=== PATIENT | female | born 2005 | race Caucasian/White ===

== ENCOUNTER 2025-01-29 16:51 | Emergency (ER) | payer BC, SELFPAY ==
--- OUTSIDE RECORDS SUMMARY | 2024-11-12 07:59 | XMS_ITS | Continuity of Care Document ---
Author Organization [facility] Address [address] [place] [address] [address] [place] [address] Phone Care Team Providers Care Grounds Caretaker Name Role Phone Aditya PT,MPT,ATC, Jun Unavailable Unavai lable Procedures Procedure Date Therapeutic Activities Neuromuscular Re-Ed Therapeutic Exercise Therapeutic Activities Neuromuscular Re-Ed Therapeutic Exercise Therapeutic Activities Neuromuscular Re-Ed Therapeutic Exercise Therapeutic Activities Neuromuscular Re-Ed Therapeutic Exercise Therapeutic Activities Neuromuscular Re-Ed Therapeutic Exercise Therapeutic Activities Neuromuscular Re-Ed Therapeutic Exercise Therapeutic Activities Neuromuscular Re-Ed Therapeutic Exercise Therapeutic Activities Neuromuscular Re-Ed Therapeutic Exercise Therapeutic Activities Neuromuscular Re-Ed Therapeutic Exercise Therapeutic Activities Neuromuscular Re-Ed Therapeutic Exercise Therapeutic Activities Neuromuscular Re-Ed Therapeutic Exercise Therapeutic Activities Neuromuscular Re-Ed Therapeutic Exercise Therapeutic Activities Neuromuscular Re-Ed Therapeutic Exercise PT Evaluation Moderate Complexity Therapeutic Activities Neuromuscular Re-Ed Advance Directives Directive Yes / No Effective Date File Name No Information Encounters Encounter Description Practice Location Reason(s) For Visit Diagnoses Date Provider Providers Copied on Encounter [facility], [place], [place], [id number], tel:[phone] [place] No Information - 5 CARSON [place], [place]. [facility], [place], [place], [id number], tel:[phone] [place] No Information Aug- 5 [place] Ronnie. . Referring Provider: Michael Worrell [address], [place], [address]. tel:[phone] [facility] [address], [place], [place], [id number], tel:[phone] [place] No Information Aug-07 14- 5 [place] Ronnie. . Referring Provider: Michael Worrell [address], [place], [address]. tel:[phone] [facility], [place], [place], [id number], tel:[phone] [place] No Information Aug-06 16- 5 [place] Ronnie. . Referring Provider: Michael Worrell [address], [place], [address]. tel:[phone] [facility], [place], [place], [id number], tel:[phone] [place] No Information Aug- 4-202 5 [place] Ronnie. . Referring Provider: Michael Worrell [address], [place], [address]. tel:[phone] [facility], [place], [place], [id number], [place] tel:[phone] [place] No Information Mar-1 0-202 5 [place] Ronnie. . Referring Provider: Michael Worrell [address], [place], [address]. tel:[phone] [facility], [address], [place], [place], [id number], [place] tel:[phone] [place] No Information Mar-0 5-202 5 [place] Ronnie. . Referring Provider: Michael Worrell [address], [place], [address]. tel:[phone] [facility], [place], [place], [id number], [place] tel:[phone] [place] No Information Mar-0 3-202 5 [place] Ronnie. . Referring Provider: Michael Worrell [address], [place], [address]. tel:[phone] [facility] [address] [place] [address] [address], [place], [place], [id number], [place] tel:[phone] [place] No Information Feb-2 6-202 5 [place] Ronnie. . Referring Provider: Michael Worrell [address], [place], [address]. tel:[phone] [facility] [address], [place], [place], [id number], [place] tel:[phone] [place] No Information Feb-2 4-202 5 [place] Ronnie. . Referring Provider: Michael Worrell [address], [place], [address]. tel:[phone] [place] [address], [place], [place], [id number], [place] tel:[phone] [place] No Information 5 [place] Ronnie. . Referring Provider: Michael Worrell [address], [place], [address]. tel:[phone] [facility], [place], [place], [id number], [place] tel:[phone] [place] No Information 5 [place] Ronnie. . Referring Provider: Michael Worrell [address], [place], [address]. tel:[phone] [facility], [place], [place], [id number], [place] tel:[phone] [place] No Information 5 [place] Ronnie. . Referring Provider: Michael Worrell [address], [place], [address]. tel:[phone] [facility], [place], [place], [id number], [place] tel:[phone] [place] No Information 5 [place] Ronnie. . Referring Provider: Michael Worrell [address], [place], [address]. tel:[phone] [facility], [place], [place], [id number], [place] tel:[phone] [place] No Information 5 Aditya Berman [place], [place]. Referring Provider: Michael Worrell [address], [place], [address]. tel:[phone] Family History Family Member Type Diagnosis Age At Onset No Information Payers Payer name Insurance type Covered republican ID Gulshan barrera(s) [facility] [id number] Social History Type Description Quantity Date Captured Comments Sex Female Smoking Status No Information Chief Complaint And Reason For Visit No Information Reason For Referral Reason For Referral No Information History Of Present Illness Encounter Date Complaint History Of Prese nt Illness No Information Functional Status Date Functional Assessmen t No Information Instructions Date Instruction Additional Infor mation No Information Assessments Type Assessment Date No Information Patient Care Teams Name Effective Dates (start - stop) Status Members No Information
--- NOTE | ~2025-01-29 | CT_ITS ---
EXAMINATION: CT diagnostic chest w con DATE: 01/29/2025 19:56 INDICATION: BA. Chest pain TECHNIQUE: Computed tomography (CT) of the chest was performed with 100 cc Omnipaque 350 intravenous contrast. The dose-length product was 182.10 mGy-cm. Automated exposure control and iterative reconstruction technique were employed. COMPARISON: None FINDINGS: Heart size normal. No thoracic lymphadenopathy. No significant pleural or pericardial effusion. Upper abdomen is unremarkable. There are blebs in the right lower lobe. No focal airspace consolidation. No pneumothorax. No acute osseous abnormality. There is a hemangioma in T10. IMPRESSION: 1. No acute abnormality of the chest. Reviewed, dictated and finalized at location O.
--- NOTE | ~2025-01-29 | XR_ITS ---
XR hand LT min 3V, XR wrist LT min 3V 01/29/2025 18:16 INDICATION: Left hand and wrist pain after trauma PROCEDURE: 3 views left hand and 4 views left wrist COMPARISON: No prior studies for comparison. FINDINGS: Fracture, dislocation or subluxation is not identified. The soft tissues appear within normal limits. No foreign bodies are identified. IMPRESSION: 1: NO ACUTE BONE OR JOINT ABNORMALITY IDENTIFIED. Reviewed, dictated and finalized at location O. IMPRESSION: 1: NO ACUTE BONE OR JOINT ABNORMALITY IDENTIFIED.
[2025-01-29 16:57] VITALS: BP 134/85; PULSE 87; RESP 18; TEMP 36.9; O2SAT 98
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
[2025-01-29 18:45] LABS: Hematocrit 43.3 % (37.0-47.0); Hemoglobin 14.5 g/dL (12.0-15.0); Immature Granulocyte Percent A 0.1 % (0-0.5); Lymphocytes Absolute Auto 2.09 K/mm3 (0.9-3.2); Mean Corpuscular HGB Conc 33.5 g/dl (32-36); Mean Corpuscular Hemoglobin 28.5 pg (26-34); Mean Corpuscular Volume 85.2 fl (80-100); Nucleated Red Blood Cells Absolute Auto 0.000 K/mm3 (0.0-0.012); Nucleated Red Blood Cells Perc 0.0 % (0.0-0.2); Platelet Count Result 475 k/mm3 (150-375); Red Blood Count 5.08 M/mm3 (4.2-5.4); White Blood Count 8.4 K/mm3 (4.5-10.0)
[2025-01-29 19:03] LABS: Alanine Aminotransferase 25 U/L (6-35); Albumin Level 4.8 g/dL (3.5-5.1); Alkaline Phosphatase 118 U/L (38-126); Anion Gap 9 mmol/L (4-12); Aspartate Amino Transferase 34 U/L (14-36); Bilirubin,Total 0.4 mg/dL (0.2-1.3); Blood Urea Nitrogen 9 mg/dL (7-17); Calcium 9.6 mg/dL (8.4-10.2); Carbon Dioxide 21 mmol/L (22-30); Chloride 108 mmol/L (98-107); Estimated CRCL calculation 113 ml/min; Estimated Glomerular Filt Rate > 60; Glucose 105 mg/dL (65-110); Lipase 70 U/L (23-300); Potassium 4.0 mmol/L (3.4-5.0); Sodium 138 mmol/L (137-145); Total Protein 8.0 g/dL (6.3-8.2)
[2025-01-29 19:05] LABS: INR 1.1; Partial Thromboplastin Time 27.9 Seconds (22.3-36.8); Prothrombin Time 14.1 Seconds (11.1-14.7)
--- OUTSIDE RECORDS SUMMARY | 2025-01-29 19:13 | XMS_ITS | Clinical Summary ---
Author Organization [facility] ospital Address [address] [place] [address] Care Team Providers Care Rn Homecare Name Role Phone Mahsa Barger OT Unavailable [phone] Dior Cummings MD Primary Care Provide r Sandrita Gregg RAILROAD ENGINEER Unavailable [phone] Allergies Active Allergy Reactions Criticality Noted Date Comments Adhesive Itching,Redness Low 12/18/2024 Paper Tape OK Kiwi Hives Medium 03/02/2024 Mouth swelling Latex Rash Medium 04/04/2017 Swelling with prolonged exposure Pollen Extracts Rash Medium 04/04/2017 Medications ferrous sulfate 325 mg (65 mg of elemental iron) tablet TAKE 1 TABLET BY MOUTH EVERY DAY WITH BREAKFAST 90 tablet 1 05/05/20 18 Active Additional Information Patient taking differently: 65 mg of elemental iron oral Daily with breakfast, NONE IN OVER A MONTH , Indications: Iron Deficiency Anemia, Informant: Self, Reported on 01/01/2025 cholecalciferol (VITAMIN D-3) 2000 unit capsuleIndication s:Vitamin D Deficiency Take 1 capsule (2,000 Units total) by mouth daily 30 capsule 11 09/02/19 21 Active Additional Information Patient taking differently:2,000 Units oralEvery morning, NONE IN OVER A MONTH, Indications: Vitamin D Deficiency, Reported on 12/18/[address] (NexIUM) 20 mg capsuleIndication s:Nausea Take 1 capsule (20 mg total) by mouth daily as needed NONE IN OVER A MONTH Active etonogestreL (NEXPLANON) 68 mg implantIndication s: Contraception 1 each (68 mg total) by subdermal route 12/19/19 24 Active lamoTRIgine (LaMICtal) 100 mg tabletIndications :Anxiety with Depression Take 1 tablet (100 mg total) by mouth nightly 09/24/19 24 Active SUMAtriptan (IMITREX) 50 mg tabletIndications :Migraine Take 1 tablet (50 mg total) by mouth once as needed for migraine May repeat after 2 hours. 27 tablet 2 10/31/[address] (CYMBALTA) 60 mg capsule TAKE 1 CAPSULE BY MOUTH ONCE DAILY ALONG WITH 30 MG CAPSULE FOR A TOTAL OF 90MG PER DAY 90 capsule 1 12/08/19 25 Active Additional Information Patient taking differently: 60 mg oral Nightly, (No instructions reported), Indications: Anxiety with Depression, Informant: Self, Reported on 01/01/2025 cannabidiol, CBD, (medical cannabis) eachIndications:I nsomnia,chronic pain Take 1 Dose by mouth as needed THC - sometimes uses gummies, mostly honey infused in tea or honey butter Active cyclobenzaprine (FLEXERIL) 10 mg tabletIndications :Post Surgical Pain Take one tablet up to 3 times per day as needed for muscle spasms. 30 tablet 12/30/19 25 Active celecoxib (CeleBREX) 200 mg capsuleIndication s:Postoperative Acute Pain Take 1 capsule the evening before surgery, then 1 capsule two times daily for 7 days. 14 capsule 12/30/19 25 025 Discontinu ed(Therapy completed) docusate sodium (COLACE) 100 mg capsuleIndication s:constipation Take 1 capsule (100 mg total) by mouth 3 (three) times a day Start 2 days preop and continue 3 days post op then continue as needed 30 capsule 12/30/19 25 025 Discontinu ed(Therapy completed) cephalexin (KEFLEX) 500 mg capsuleIndication s:Prophylaxis, Surgical Take 1 capsule (500 mg total) by mouth 4 (four) times a day for 7 days 28 capsule 12/30/19 25 025 ondansetron ODT (ZOFRAN-ODT) 4 mg disintegrating tabletIndications :Gender dysphoria Dissolve one tablet under the tongue at bedtime the evening before surgery. 1 tablet 12/30/19 25 025 Discontinu ed(Therapy completed) HYDROcodone-aceta minophen (NORCO) 5-325 mg per tabletIndications :Pain Take 1 tablet by mouth every 6 (six) hours as needed for pain 20 tablet 12/30/19 25 025 Discontinu ed(Therapy completed) pregabalin (LYRICA) 75 mg capsuleIndication s:Gender dysphoria Take 1 capsule (75 mg total) by mouth 2 (two) times a day for 7 days Beginning with one tablet at bedtime the evening before surgery. 14 capsule 12/30/19 25 025 Discontinu ed(Therapy completed) Active Problems Problem Noted Date Diagnosed Date Nausea 12/19/2023 Assessment & Plan (12/19/2023 9:10 AM CDT): Chronic Worsening Negative for covid and flu Will get tsh cmp A1c and 24hr urine fractionated metanephrine and catecholamines(low suspicion for pheochromocytoma) cortisol level(although low suspicion for adrenal insufficiency) F/u in 1 month for monitoring Dizziness 12/19/2023 Assessment & Plan (01/22/2024 10:23 AM CDT): Chronic Worsening Instructed to follow up with her coil placer In the mean time will get holter monitor for 14 days, mri of the brain and mra of the neck and refer to neurology F/u prn Assessment & Plan (12/19/2023 9:08 AM CDT): Chronic Worsening Will get tsh cmp A1c and 24hr urine fractionated metanephrine and catecholamines(low suspicion for pheochromocytoma) cortisol level(although low suspicion for adrenal insufficiency) F/u in 1 month for monitoring BMI 29.0-29.9,adult 10/30/2023 Rib pain on left side 10/10/2023 Assessment & Plan (12/27/2023 1:14 PM CDT): New concern Not at goal Possible muscle strain or costochondritis Will get chest x-ray to evaluate for fracture Will send toradol for symptomatic relief. Instructed to report to the ER for worsening shortness of breath due to concern of pneumothorax. She verbalized understanding Assessment & Plan (10/10/2023 12:23 PM CDT): New concern Not at goal Will get chest x-ray to evaluate for fracture Will send lidocaine patches for symptomatic relief. Instructed to report to the ER for worsening shortness of breath due to concern of pneumothorax. 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 Continue recommendation as they discussed Form for parking placard filled as patient usually uses a cane or brace for mobility due to an arthritic pain Assessment & Plan (02/28/2024 9:41 AM CDT): Chronic Genetic counseling office declined referral Will refer back to rheumatology for further recommendations, esr rf yessenia ordered Assessment & Plan (01/22/2024 10:26 AM CDT): Continue following with pain management Referral to genetic counseling as requested by patient Assessment & Plan (10/10/2023 12:27 PM CDT): New concern Not at goal Interested in referral to rheumatology Referral placed Fibromyalgia 10/10/2023 Assessment & Plan (10/29/2024 12:39 PM CDT): Chronic Stable Continue to monitor Assessment & Plan (10/30/2023 4:48 PM CDT): Chronic Stable Continue to monitor In the process of getting in with rheumatology Assessment & Plan (10/10/2023 12:26 PM CDT): Chronic Stable Interested in 2nd opinion Referral to rheumatology given Encounter for wellness examination 09/13/2023 Assessment & Plan (10/30/2024 10:31 AM CDT): Labs pending Tdap given Reminded to get in with her ob for her pap smear F/u in 1 year for annual Assessment & Plan (10/29/2023 12:43 PM CDT): Ordered CBC, cmp, lipid, hgb a1c, HIV, hep c, TSH w/ reflex to t4 F/u in 1 year for annual Irregular menstruation 09/11/2023 Assessment & Plan (09/11/2023 10:53 AM CDT): Patient aware that irregular bleeding is normal with the Nexplanon. She would like to check her thyroid, we will also check a prolactin level. Further plan will be pending these results. Axillary lump, left 04/24/2023 Assessment & Plan (05/08/2023 11:41 AM BAKER HEAD): The patient presents today for follow-up of a left axillary lump status post treatment with Keflex. She is doing wonderfully in the office today. She no longer is experiencing any tenderness in the axilla and the lump is no longer palpable. If she would notice recurrence, she will notify my office and we will consider an axillary ultrasound. The patient verbalizes understanding. She will call with any further questions or concerns. Assessment & Plan (04/24/2023 10:28 AM BAKER HEAD): The patient presents today with a tender, palpable left axillary lump. I do think this is likely either a lymph node or possibly an occlusion cyst that is becoming infected. We discussed the possibility of this also being an infected hair follicle. I would like to treat her with Keflex 250 mg q.i.d. x7 days. I would like to see her back in 2 weeks for a recheck. If she would notice any worsening or further signs of infection, she will notify our office. Patient is in agreement with the plan of care and verbalizes understanding. Nightmares 03/01/2023 Assessment & Plan (03/01/2023 9:37 AM CDT): New Worsening Will send for CBT Can follow up with psych once she gets in with them in June Other chronic pain 01/19/2021 Overview (01/19/2021): Medications Emil has tried include naproxen, cymbalata, clonidine, ibuprofen, zoloft Physical functioning includes have been able to attend PT in the past for her wrist pain last as a freshman in [email or web address] Mental Health resources identifies as they, prefers to be called Precious or Emil, virtual meeting with counselor in [place], no current psychiatrist, She is on cymbalta and clonidine Assessment & Plan (09/10/2022 12:26 PM CDT): Continue following with pain management and rheumatology Amplified musculoskeletal pain, diffuse 01/20/20 21 Other specified anxiety disorders 01/04/2021 Vitamin D deficiency 09/01/2020 Assessment & Plan (09/10/2022 11:34 AM CDT): Continue with vit D Will order vit d levels Gender dysphoria 09/01/2020 Orthostatic hypotension 09/01/2020 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 Will continue to monitor. Continue with duloxetine and lamictal Follow-up with specialist Assessment & Plan (10/29/2023 12:45 PM CDT): Stable / clinically quiescent. Will continue to monitor. Continue with duloxetine and lamictal Working on getting in with psychiatry Assessment & Plan (09/10/2022 11:31 AM CDT): Stable / clinically quiescent. Will continue to monitor. Continue with duloxetine who is prescribing cymbalta Working on getting in with psychiatry Migraine without aura and wi thout status migrainosus, not intractable 08/31/2020 Assessment & Plan (10/29/2024 12:39 PM CDT): Chronic Stable Continue sumatriptan 50mg prn Assessment & Plan (02/28/2024 9:41 AM CDT): Chronic Worsening episodes 3-4x/month Will do a trial of sumatriptan 50mg prn F/u in 1 month, if no improvement will consider a daily medication Assessment & Plan (10/29/2023 12:43 PM CDT): Take otc medication which works for migraines Assessment & Plan (09/10/2022 11:30 AM CDT): Take otc medication which works for migraines Chest pain 10/12/2019 Assessment & Plan (03/01/2023 9:35 AM CDT): Strest test and echo unremarkable Will refer to cardiology for further recommendation F/u prn Assessment & Plan (01/18/2023 11:54 AM CDT): Atypical worsening Likely stress induced Given information for therapy options They will reach out to psychiatrist office that family member goes to EKG, chest xray unremarkable in ED Will do a stress test and echo F/u in 1 month pending results Family history of congenital heart disease in fa ther 10/12/2019 Menorrhagia with regular cycle 04/04/2017 Overview (04/04/2017): See problem list above. Assessment & Plan (05/26/2017 8:50 PM BAKER HEAD): Keep an accurate menstrual diary; needs to cycle on her own x 2 years before getting hormones; at the first sign of bleeding signaling a menstrual cycle; take 800mg of Ibuprofen with full stomach every 8 hours x 2-3 days; she should see a decrease in her menstrual flow; call office if her bleeding does not lessen; will also check a CBC and RTO in 3 months for a med check. Resolved Problems Problem Noted Date Diagnosed Date Resolved Date Encounter for completion of form with patient 08/12/1910/29/2024 Assessment & Plan (08/11/2024 8:40 AM BAKER HEAD): Forms for parking placard filled copied and returned to the patient Gastroenteritis 04/17/2023 10/29/2024 Assessment & Plan (04/17/2023 12:39 PM BAKER HEAD): Viral Flu and covid swab negative Recommend BRAT diet Rest and hydrate F/u for worsening symptoms, note for school given Encounter for removal and re insertion of Nexplanon 09/08/2022 10/29/2024 Assessment & Plan (09/11/2023 10:52 AM CDT): The patient underwent Nexplanon exchange without difficulty today. She tolerated the procedure well. She was encouraged to leave the Steri-Strips intact for 48 hours and the pressure dressing intact for 24 hours. She will notify my office with any sign of infection. If she would become sexually active I did encourage backup contraception for the 1st month following insertion. Assessment & Plan (09/08/2022 12:58 PM CDT): Ordered CBC, cmp, lipid, hgb a1c, HIV, hep c, TSH w/ reflex to t4 F/u in 1 year for annual Encounters Date Type Department Care Team Description 01/08/2025 10:00 AM CDT Office Visit [facility] Medicine Surgery [address] [place] [address] Gender dysphoria (Primary Dx) 01/01/2025 8:45 AM CDT Anesthesia Event [facility] Operating Room [address] [place] [phone] Timo Drummond MD Dulle, Alison Renee, NP 01/01/2025 8:35 AM CDT - 01/01/2025 10:35 AM CDT Surgery [facility] Operating Room [id number] [place] [id number] Trudy Villafana MD GENDER AFFIRMING CHEST RECONSTRUCTION VIA BREAST REDUCTION WITH FREE NIPPLE GRAFTING 01/01/2025 6:33 AM CDT - 01/01/2025 12:59 PM CDT Hospital Encounter [facility] Operating Room [address] [place] [id number] Trudy Villafana MD Gender dysphoria Discharge Disposition: Discharge to home or self care 11/03/2024 Results Follow-Up [facility] Primary Care at [address] [address] Dior Thompson MD Hemoglobin A1c, Thyroid Function [place], Lipid panel, Additional followed-up results: 4 10/30/2024 10:50 AM CDT Lab [address] Routine health maintenance 10/30/2024 10:00 AM CDT Office Visit [facility] Medical [facility] Primary Care at [address] [address] Dior Thompson MD Encounter for wellness examination (Primary Dx); Severe episode of recurrent major depressive disorder, without psychotic features (HCC); Fibromyalgia; Migraine without aura and without status migrainosus, not intractable; BMI 29.0-29.9,adult; Need for iuzhjelzml-rgvgjtz-pzy tussis (Tdap) vaccine from Last 3 Months Immunizations Immunization Administration Dates Next Due DTaP / Hep B / IPV 02/15/2004,2003, 004 DTaP / IPV 10/28/2008 DTaP, Unspecified 08/23/2005 HPV9 10/22/2017,01/17/2016 Hep A, Unspecified 10/17/2007,12/26/2006 Hep B, Unspecified 2003 HiB 08/23/2005, 4,2003,09/26 Influenza, Quadrivalent, Spl it, Preservative Free, Intramuscular 08/03/2019,05/28/2018 Influenza, Trivalent, Preser vative Free, Intramuscular 02/28/2024 Influenza, Unspecified 03/25/2023,2021(Deferred: Patient Refused) MMR 10/28/2008,07/18/2004 Meningococcal Conjugate (Menveo) 08/03/2019,11/08 Pneumococcal Conjugate 7-Valent 08/23/2005,11/28,2003 Tdap 10/30/2024,11/18/2014 Varicella 10/28/2008,07/18/2004 Surgical History Surgery Date Site/Laterality Comments WISDOM TOOTH EXTRACTION 06/10/2021 - 06/09/2022 Medical History Medical History Date Comments Anxiety Depression Low iron Functional neurological symp yrn disorder with mixed symptoms functional tics Migraines Fibromyalgia Bipolar depression (HCC) Chest pain panic attacks, e xertion, random Motion sickness Family History Medical History Relation Name Comments Hypertension Father Farshad Mental illness Father Farshad stomach, bowel and gallbladder Father Farshad Cancer Father's Sister Barb Colon cancer Father's Sister Barb Diabetes Maternal Grandmother [place] Hypertension Maternal Grandmother [place] Thyroid disease Maternal Grandmother [place] Mental illness Mother Caikhadar Diabetes Paternal Grandfather Hossein Pritchett Heart disease Paternal Grandfather Hossein Pritchett Hyperlipidemia Paternal Grandfather Hossein Pritchett Hypertension Paternal Grandfather Hossein Pritchett Cancer Paternal Grandmother Claire Pritchett Diabetes Paternal Grandmother Claire Pritchett Endometriosis Paternal Grandmother Claire Pritchett Anesthesia problems Neg Hx Relation Name Status Comments Father Farshad Father's Sister Barb Alive Maternal Grandmother [place] Mother Caifroylana Paternal Grandfather Hossein Pritchett Paternal Grandmother Claire Pritchett Social History Tobacco Use Types Packs/Day Years Used Date Smoking Tobacco: Never Passive Smoke Exposure: Never Smokeless Tobacco: Never Tobacco Cessation:Counseling Given: Not Answered Alcohol Use Standard Drinks/Week Comments No 0 (1 standard drink = 0.6 oz pur e alcohol) AUDIT-C Answer Date Recorded Q1: How often do you have a drink containing alc ohol? 2-4 times a month 01/01/2025 Q2: How many drinks containi ng alcohol do you have on a typical day when you are drinking? 1 or 2 01/01/2025 Q3: How often do you have si x or more drinks on one occasion? Never 01/01/2025 PHQ-2 Answer Date Recorded PHQ-2 Total Score (If total score is 3 or more points, staff should administer the PHQ-9) 0 10/30/2024 Personal Safety Answer Date Recorded Have you ever been in or are you currently in a harmful physical or emotional relationship or is someone making you feel afraid or unsafe? Denies 01/01/2025 Comments No Sex and Gender Information Value Date Recorded Sex Assigned at Not on file Legal Sex Female 9:10 AM BAKER HEAD Gender Identity Genderqueer, neither exclusively Male nor Female 01/18/2021 10:46 AM CDT Sexual Orientation Lesbian 05/08/2021 3: 11 PM BAKER HEAD Obstetrics History Para Term AB IAB SAB Ectopic Multiple Livin g Live Births 0 0 0 0 0 0 0 0 0 0 0 Last Filed Vital Signs Vital Sign Reading Time Taken Comments Blood Pressure 133/70 01/01/2025 12:25 PM CDT Pulse 104 01/01/2025 12:25 PM CDT Temperature 37.1 C (98.8 F) 01/01/2025 12:15 PM CDT Respiratory Rate 12 01/01/2025 11:35 AM CDT Oxygen Saturation 96% 01/01/2025 12:25 PM CDT Inhaled Oxygen Concentration - - Weight 84.8 kg (187 lb) 01/01/2025 7:25 AM CDT Height 170.2 cm (5' 7) 01/01/2025 7:25 AM CDT Body Mass Index 29.29 01/01/2025 7:25 AM CDT Plan of Treatment Health Maintenance Due Date Last Done Comments Cervical Cancer Screening 2005 Influenza Vaccine (#1) 2025 , 03/25/2023, 08/03/2019, Additional history exists Meningococcal B Vaccine (1 of 2 - Standard) 08/09/2025 Postponed from 2019 (Patient declined, but will receive in the future) Covid-19 Vaccine ( - season) 2025 10/07/2020, 09/08/2020 Postponed from 02/09/2024 (Patient declined, but will receive in the future) Depression Screening 10/30/2025 10/30/2024, 08/11/2024, 02/28/2024, Additional history exists Regular Well Visit/Exam 18-64 10/30/2025 10/30/2024, 10/30/2023, 09/10/2022 DTaP/Tdap/Td Vaccine (8 - Td or Tdap) 10/30/2034 10/30/2024, 11/18/2014, 10/28/2008, Additional history exists Hepatitis B Screening Completed 02/15/2004 , 2003, 2003, Additional history exists Pneumococcal vaccine <65 Completed 006, 2003, 2003 Varicella Vaccines Completed 10/28/2008, 07/18/2004 HPV Vaccines Completed 10/22/2017, 01/17/2016 Meningococcal Vaccine Completed 08/03/2019, 015 Hepatitis C Screening Completed 02/28/2024 Goals Goal Patient Goal Type Associated Problems Recent Progress Patient-Stated? Author Autogenera olamide Goal Care Plan Autogenerated Problem No Suzi Moise RN Medical Devices Implanted Type Area Journalist Device Identifier Shelf Expiration Date Model / Serial / Lot Nexplanon Arm Procedures Procedure Name Priority Date/Time Associated Diagnosis Comments SURGICAL PATHOLOGY Routine 01/01/2025 9: 22 AM CDT Gender dysphoria FL AN PROCEDURE PLACEHOLDER Routine 01/01/2025 9:19 AM CDT FL AN ELECTIVE SUPRAGLOTTIC AIRWAY Routine 01/01/2025 9:19 AM CDT CHEST RECONSTRUCTION WITH SUBCUTANEOUS MASTECTOMY WITH OR WITHOUT FREE NIPPLE GRAFT 01/01/2025 8:45 AM CDT Gender dysphoria Special Needs Need Prevena - need 8am start due to childcare issue POCT HCG, URINE Routine 01/01/2025 7:45 AM CDT POCT COTININE Routine 01/01/2025 EGFR Routine 10/30/2024 10:51 AM CDT Routine health maintenance DIFFERENTIAL AUTO Routine 10/30/2024 10:51 AM CDT Routine health maintenance CBC WITH AUTO DIFFERENTIAL Routine 10/30/2024 10:51 AM CDT Routine health maintenance COMPREHENSIVE METABOLIC PANEL Routine 10/30/2024 10:51 AM CDT Routine health maintenance LIPID PANEL Routine 10/30/2024 10:51 AM CDT Routine health maintenance THYROID FUNCTION CASCADE Routine 10/30/2024 10:51 AM CDT Routine health maintenance HEMOGLOBIN A1C Routine 10/30/2024 10:51 AM CDT Routine health maintenance HEPATITIS C ANTIBODY Routine 02/28/2024 9:31 AM CDT Preventative health care Need for hepatitis C screening test from Last 3 Months or Most Recently Relevant to Health Maintenance Results * Surgical pathology (01/01/2025 9:22 AM CDT) Tissue (Breast, reduction) 01/01/2025 9:22 AM CDT Comment:Sent fresh Tissue specimen (specimen) (Breast, reduction) 01/01/2025 9:24 AM CDT Comment:Sent fresh Narrative PATHOLOGY [facility] - 01/06/2025 6:30 PM CDT EPIC results best viewed via link to PDF [facility] [place] [address] Note to Patients: This report may contain a detailed description of human tissue sent by a health care provider to the laboratory for pathologic evaluation. The content of this report is essential for diagnosis and may provide important critical findings. This information may be unfamiliar to patients to review without a medical professional present. It is advised that the patient review this report in the presence of a health care provider who can answer questions and explain the details. SURGICAL PATHOLOGY REPORT FINAL Patient Name: EMIL PRITCHETT Gender: F : 2005 (Age: 19) Address: [address] [place] [address] [place] [address] [facility] #: [id number] Taken:01/01/2025 Received:01/01/2025 Reported: 01/06/2025 Patient Type: [facility] EP SAME Client [facility] Service: Surgery Location: Physician(s): Caren Sarabia M.D. Diagnosis: A. Breast, left, reduction mammoplasty - Benign breast tissue and skin - No atypical or malignant findings B. Breast, right, reduction mammoplasty - Benign breast tissue and skin - No atypical or malignant findings krpr/01/06/2025 15:07 By this signature, I attest that the above diagnosis is based upon my personal examination of the slides(and/or other material indicated in the diagnosis). Nena Tavarez MD PhD Report Electronically Reviewed and Signed Out By Nena Tavarez MD PhD 01/06/2025 18:30:42 Ayah Krishnamurthy M.D. History: The patient is a 19-year-old individual with gender dysphoria. Operative procedure: Reconstruction via breast reduction with free nipple grafting. Specimen(s) Received: A: Left Breast reduction B: Right Breast reduction Gross Description: Received in two formalin jars labeled with the patient's identifiers. A. Labeled left breast reduction are multiple pieces of adipose tissue partially surfaced by stevens-pink wrinkled skin weighing 902.3 g and measuring 23.2 x 21.4 x 5.1 cm in aggregate. The specimen is sectioned to show a an unremarkable fibrofatty cut surface. Labeled A1 to A3. Jar 4. B. Labeled right breast reduction is a single piece of adipose tissue partially surfaced by stevens-pink wrinkled skin weighing 916.6 g and measuring 18.3 x 16.5 x 6.4 cm. The specimen is sectioned to show an unremarkable fibrofatty cut surface. Labeled B1 to B3. Jar 4. cnew/01/04/2025 10:57 PA(s): TRESSA He By this signature, I attest that the above diagnosis is based upon my personal examination of the slides(and/or other material). Addenda/Procedures Microscopic slide review and interpretation for this case was performed at , Department of Surgical Pathology, [address] [facility] [place] [id number], [place] [address] CLIA # [id number] The performance characteristics of some immunohistochemical stains, fluorescence in-situ hybridization tests and immunophenotyping by flow cytometry cited in this report (if any) were determined by the Surgical Pathology and Flow Cytometry Departments at as part of an ongoing quality checker program and in compliance with federally mandated regulations drawn from the Clinical Laboratory Improvement Act of 1988 (CLIA '88). Some of these tests rely on the use of analyte specific reagents and are subject to specific labeling requirements by the US Food and Drug Administration. Such diagnostic tests may only be performed in a facility that is certified by the Department of Health and Human Services as a high complexity laboratory under CLIA '88. The FDA has determined that such clearance or approval is not necessary. This test is used for clinical purposes. It should not be regarded as investigational or for research. Nevertheless, federal rules concerning the medical use of analyte specific reagents require that the following disclaimer be attached to the report: This test was developed and its performance characteristics determined by the Surgical Pathology and Flow Cytometry Departments of . It has not been cleared or approved by the U. S. Food and Drug Administration. IMAGES AND SCANNED DOCUMENTS, IF INCLUDED, ONLY VIEWABLE IN PDF VERSION OF REPORT Trudy Villafana MD LAB PATHOLOGY ORDERABLES [facility] Result Performing Organization Address City/State/[facility] Co de Phone Number PATHOLOGY [facility] [phone] * FL AN ELECTIVE SUPRAGLOTTIC AIRWAY, FL AN PROCEDURE PLACEHOLDER (01/01/2025 9:19 AM CDT) Narrative Renu Ni CRNA - 01/01/2025 9:19 AM CDT Renu Ni CRNA 01/01/2025 9:19 AM Airway Patient location: OR Urgency: elective Date/time: 01/01/2025 8:56 AM Indications for airway management: anesthesia Difficult airway: no Staff: Placed by: EXTENSION SERVICE SPECIALIST IN CHARGE: Renu Ni CRNA Emergent airway documentation: Risks and benefits discussed: yes Consent obtained: yes Consent given by: patient Airway prep: Preoxygenated: yes Patient position: sniffing Mask difficulty assessment: 0 - not attempted Spontaneous ventilation during airway: absent Sedation level during airway: GA Final airway details: Final airway type: supraglottic airway Final supraglottic airway: IGel SGA size: 4 Number of attempts: 1 Ventilation between attempts: none Timo Drummond MD ANESTHESIA ORDERABLES Yuli l Result * POCT hCG, urine (01/01/2025 7:45 AM CDT) HCG, ur, POC Negative Negative Lot Number [id number] QC Backgroud Clear Acceptable QC Control Line Acceptable Urine 01/01/2025 7:45 AM CDT Trudy Villafana MD POINT OF CARE TEST ORDERABL ES Final Result * POCT cotinine (01/01/2025) Cotinine, POC Negative Lot Number [id number] QC Negative Control Acceptable QC Positive Control Acceptable Urine 01/01/2025 Samra Buchanan MD POINT OF CARE TEST ORDERA BLES Final Result * eGFR (10/30/2024 10:51 AM CDT) Pathologist [facility] eGFR >90 >=60 mL/min/1. 73 m2 Comment: Interpretive Data Reference Interval Normal >/= 90 mL/min/1.73m2 Mildly decreased* 60 - 89 mL/min/1.73m2 Mildly to moderately decreased 45 - 59 mL/min/1.73m2 Moderately to severely decreased 30 - 44 mL/min/1.73m2 Severely decreased 15 - 29 mL/min/1.73m2 Kidney Failure < 15 mL/min/1.73m2 *Relative to young adult level Estimated glomerular filtration rate is determined by the 2020 CKD-EPI equation recommended by the National Kidney Foundation (A Unifying Approach to GFR Estimation: Recommendations of the NKF-ASK Task Force on Reassessing the Inclusion of Race in Diagnosing Kidney Disease, JASN 2020). The CKD-EPI equation should not be used for patients with unstable renal function and has not been validated in children and those over 70. Current interpretive data was last reviewed 2021. Blood 10/30/2024 10:5 1 AM CDT 10/30/2024 4:02 PM CDT us Dior Cummings MD LAB BLOOD ORDERABLES Final Result CANDACE JONAS ([place]) 1 [facility] Department [place] [address] * Differential, auto (10/30/2024 10:51 AM CDT) Neutrophil abs 4.90 1.50 - 6.50 K/cumm Imm gran abs 0.01 0.00 - 0.10 K/cumm [facility] ([place]) Lymphocyte abs 2.07 0.80 - 3.30 K/cumm [facility] ([place]) Monocyte abs 0.53 0.20 - 0.80 K/cumm [facility] ([place]) Eosinophil abs 0.13 0.00 - 0.50 K/cumm [facility] ([place]) Basophil abs 0.04 0.00 - 0.10 K/cumm [facility] ([place]) Neutrophil pct 63.8 % [facility] ([place]) Comment: Interpretive Data Percent cell count reference ranges are not reported, since discordance with absolute values may lead to misinterpretation of CBC data. Current Interpretive Data was last revised on 2017. Imm gran pct 0.1 % [facility] ([place]) Comment: Interpretive Data Percent cell count reference ranges are not reported, since discordance with absolute values may lead to misinterpretation of CBC data. Current Interpretive Data was last revised on 2017. Lymphocyte pct 27.0 % [facility] ([place]) Comment: Interpretive Data Percent cell count reference ranges are not reported, since discordance with absolute values may lead to misinterpretation of CBC data. Current Interpretive Data was last revised on 2017. Monocyte pct 6.9 % [facility] ([place]) Comment: Interpretive Data Percent cell count reference ranges are not reported, since discordance with absolute values may lead to misinterpretation of CBC data. Current Interpretive Data was last revised on 2017. Eosinophil pct 1.7 % [facility] ([place]) Comment: Interpretive Data Percent cell count reference ranges are not reported, since discordance with absolute values may lead to misinterpretation of CBC data. Current Interpretive Data was last revised on 2017. Basophil pct 0.5 % [facility] ([place] Comment: Interpretive Data Percent cell count reference ranges are not reported, since discordance with absolute values may lead to misinterpretation of CBC data. Current Interpretive Data was last revised on 2017. Blood 10/30/2024 10:5 1 AM CDT 10/30/2024 4:02 PM CDT Dior Cummings MD LAB BLOOD ORDERABLES Final Result C[facility]ACE JONAS ([place]) 1 [facility] [place] [address] * Thyroid Function Nash (10/30/2024 10:51 AM CDT) Pathologist [facility] TSH 1.38 0.30 - 4.20 mcIUnit/mL Blood 10/30/2024 10:5 1 AM CDT 10/30/2024 4:02 PM CDT Dior Cummings MD LAB BLOOD ORDERABLES Final Result CANDACE JONAS ([place]) 1 [facility] Department [place] [address] * CBC with auto differential (10/30/2024 10:51 AM CDT) WBC 7.68 3.80 - 9.90 K/cumm Hgb 14.3 11.9 - 15.5 g/dL [facility] Hct 42.8 35.6 - 45.5 % [facility] ([place]) Plt 396 150 - 400 K/cumm [facility] ([place]) MPV 10.3 9.1 - 12.3 fL [facility] RBC 4.92 3.90 - 5.20 M/cumm [facility] MCV 87.0 81.3 - 96.4 fL [facility] ([place]) MCH 29.1 27.1 - 33.3 pg [facility] ([place]) MCHC 33.4 32.3 - 35.7 g/dL [facility] ([place]) RDW CV 13.0 11.1 - 14.9 % [facility] ([place]) RDW SD 41.4 35.7 - 48.1 fL [facility] ([place]) NRBC abs 0.00 0.00 - 0.01 K/cumm [facility] ([place]) Blood 10/30/2024 10:5 1 AM CDT 10/30/2024 4:02 PM CDT Dior Cummings MD LAB BLOOD ORDERABLES Final Result Performing Organization Address City/[facility] Co de Phone Number CANDACE Lennon[place]) 1 [facility] [place] [place] [address] * Hemoglobin A1c (10/30/2024 10:51 AM CDT) Hgb A1C 5.3 4.0 - 5.6 % Estimated Average Glucose 105 mg/dL [facility] ([place]) Comment: The ADA recommends reporting an estimated Average Glucose (eAG) with all Hemoglobin A1c results using the equation derived from a study of 507 normal and diabetic adults. Minority populations were underrepresented and children were not included. (Diabetes Care 31:1761-6975, 2008). The eAG is not equivalent to a fasting glucose. Blood 10/30/2024 10:5 1 AM CDT 10/30/2024 4:02 PM CDT Dior Cummings MD LAB BLOOD ORDERABLES Final Result CANDACE [place]on[place]) 1 [facility] [place] [address] * Lipid panel (10/30/2024 10:51 AM CDT) Cholesterol 188 30 - 199 mg/dL Comment: Interpretive Data Ages < or = 19 years Acceptable: <170 mg/dL Borderline high: 170-199 mg/dL High: >or= 200 mg/dL Ages > or = 20 years Desirable: <200 mg/dL Borderline high: 200-239 mg/dL High: >or= 240 mg/dL Literature References: 1. Expert Panel on Integrated Guidelines for Cardiovascular Health and Risk Reduction in Children and Adolescents. Pediatrics 2011;128:S213 2. NCEP Expert Panel. Circulation 2004;110:227 Current Interpretive Data was last revised on 2018. Triglycerides 112 <=149 mg/dL [facility] JON[facility] ([place]) Comment: Interpretive Data Ages < or = 9 years Acceptable: <75 mg/dL Borderline high: 75-99 mg/dL High: >or= 100 mg/dL Ages 10 to 20 years Acceptable: <90 mg/dL Borderline high: 90-129 mg/dL High: >or= 130 mg/dL Ages > or = 20 years Desirable: <150 mg/dL Borderline high: 150-199 mg/dL High: 200-499 mg/dL Very high: >or= 499 mg/dL Literature References: 1. Expert Panel on Integrated Guidelines for Cardiovascular Health and Risk Reduction in Children and Adolescents. Pediatrics 2011;128:S213 2. NCEP Expert Panel. Circulation 2004;110:227 Current Interpretive Data was last revised on 2018. HDL 40 >=40 mg/dL CANDACE ARGUELLO) Comment: Interpretive Data Ages < or = 19 years Acceptable: >45 mg/dL Borderline low: 40-45 mg/dL Low: <40 mg/dL Ages > or = 20 years Desirable: >or= 60 mg/dL Low: <40 mg/dL Literature References: 1. Expert Panel on Integrated Guidelines for Cardiovascular Health and Risk Reduction in Children and Adolescents. Pediatrics 2011;128:S213 2. NCEP Expert Panel. Circulation 2004;110:227 Current Interpretive Data was last revised on 2018. LDL, calculated 128 <=129 mg/dL CANDACE ARGUELLO) Comment: Interpretive Data Ages < or = 19 years Acceptable: <110 mg/dL Borderline high: 110-129 mg/dL High: >or= 130 mg/dL Ages > or = 20 years Optimal: <100 mg/dL Near optimal: 100-129 mg/dL Borderline high: 130-159 mg/dL High: >160 mg/dL Calculated using the Dorsey LDL-C estimating equation. This equation was implemented on 2024. Prior to this date LDL-C was estimated using the Friedewald equation. Literature References: 1. Expert Panel on Integrated Guidelines for Cardiovascular Health and Risk Reduction in Children and Adolescents. Pediatrics 2011;128:S213 2. NCEP Expert Panel. Circulation 2004;110:227 3. Willian Ramirez et al. YARIEL Cardiol. 2019October 08;5(5):540-548. doi: 10.1001/[email or web address] Current Interpretive Data was last revised on 2024. Non-HDL Cholesterol 148 mg/dL [facility] ([place]) Comment: Interpretive Data Ages < or = 19 years Acceptable: <120 mg/dL Borderline high: 120-144 mg/dL High: >145 mg/dL Ages > or = 20 years When triglycerides are >200 mg/dL, Non-HDL cholesterol is a secondary target of therapy with treatment goals that are 30 mg/dL greater than the LDL cholesterol target. Literature References: 1. Expert Panel on Integrated Guidelines for Cardiovascular Health and Risk Reduction in Children and Adolescents. Pediatrics 2011;128:S213 2. NCEP Expert Panel. Circulation 2004;110:227 Current Interpretive Data was last revised on 2018. Chol/HDL ratio 5 [facility] ([place]) Blood 10/30/2024 10:5 1 AM CDT 10/30/2024 4:02 PM CDT Dior Cummigns MD LAB BLOOD ORDERABLES Final Result [facility] ([place]) 1 [facility] Department [place] [address] * (ABNORMAL) Comprehensive metabolic panel (10/30/2024 10:51 AM CDT) Sodium 137 135 - 145 mmol/L Potassium, pl 4.2 3.3 - 4.9 mmol/L [facility] ([place]) Chloride 100 97 - 110 mmol/L [facility] ([place]) CO2 23 22 - 32 mmol/L [facility] ([place]) Anion gap 15 2 - 15 mmol/L [facility] ([place]) BUN 7 6 - 25 mg/dL [facility] ([place]) Creatinine 0.73 0.60 - 1.10 mg/dL [facility] ([place]) Glucose 69(L) 70 - 199 mg/dL [facility] ([place]) Comment: Interpretive Data Fasting glucose >/= 126 mg/dl is diagnostic for diabetes. Fasting is defined as no caloric intake for at least 8 hours. Fasting glucose between 100 mg/dl to 125 mg/dl is diagnostic of prediabetes. In a patient with classic symptoms of hyperglycemia or hyperglycemic crisis, a random glucose >/= 200 mg/dl is diagnostic for diabetes. In the absence of unequivocal hyperglycemia, results should be confirmed by repeat testing. The classification and Diagnosis of Diabetes Diabetes Care 2021; 46: S19-S40. Current interpretive data was last revised 2022. Calcium 9.3 8.5 - 10.3 mg/dL [facility] ([place]) Bilirubin, total 0.4 0.1 - 1.2 mg/dL [facility] ([place]) Protein, pl 7.2 6.5 - 8.5 g/dL [facility] ([place]) Albumin 4.3 3.5 - 5.0 g/dL [facility] ([place]) Alk phos 128 40 - 130 Units/L [facility] ([place]) ALT 11 7 - 45 Units/L [facility] ([place]) Comment:Lipemia present. Res ults may be affected. AST 23 10 - 45 Units/L [facility] ([place]) Comment: Lipemia present. Results may be affected. Slightly Hemolyzed Specimen Blood 10/30/2024 10:5 1 AM CDT 10/30/2024 4:02 PM CDT us Dior Cummings MD LAB BLOOD ORDERABLES Final Result [facility] ([place]) 1 [facility] Department [place] [address] * Hepatitis C antibody Blood (02/28/2024 9:31 AM CDT) Hep C Ab Nonreactive Nonreactive Comment: Interpretive Data Nonreactive: Antibodies to HCV not detected. Does NOT exclude the possibility of recent exposure to HCV. Equivocal: Equivocal for HCV antibodies. Supplemental molecular testing will be automatically performed to determine infection status in accordance with current CDC screening recommendations. Reactive: Positive for HCV antibodies. This may represent current or past HCV infection. Supplemental molecular testing will be automatically performed to determine current infection status in accordance with current CDC screening recommendations. Interpretive data was last revised on 2019. Testing performed by: [facility], [address] [place] [address]., [id number] Blood 02/28/2024 9:31 AM CDT 02/28/2024 6:55 PM CDT Narrative [facility] ([place]) - 02/28/2024 7:41 PM CDT fasting Dior Cummings MD LAB MICROBIOLOGY - NERAL ORDERABLES Final Result CANDACE SUMI ([place]) 1 [facility] Department [place] [address] from Last 3 Months or Most Recently Relevant to Health Maintenance Additional Health Concerns Active Problems Noted Date Diagnosed Date Autogenerated Problem 11/19/2024 Insurance [facility] ACCESS ANTHEM ACCESS ACCESS OOS ANTHEM ACCESS Advance Directives For more information, please contact: [phone] Documents on File Type Date Recorded Patient Sql Report Writer Expl anation ADVANCE DIRECTIVE 12/20/2020 4:05 AM Care Teams Rn Homecare Relationship Specialty Start Date End Date Dior Cummings MD 2 [facility] [address] [place] [address] [place] [id number] PCP - General Family Medicine 09/10/22 Mahsa Barger OT Occupational Therapist Occupational Therapy 12/14/20 Sandrita Gregg NP 1 [facility] [place] [address] Nurse Practitioner Pediatric Genetics 08/11/24
[2025-01-29 19:16] LABS: BEDSIDEPREGUCG Negative (Negative)
== END 2025-01-29 20:37 | disposition home or self-care (01) ==
PROVIDERS: Emergency Provider Physician Assistant
DX: S63.602A Unspecified sprain of left thumb, initial encounter (principal); S20.219A Contusion of unspecified front wall of thorax, initial encounter; Z90.13 Acquired absence of bilateral breasts and nipples; V43.52XA Car driver injured in collision with other type car in traffic accident, initial encounter
CPT/HCPCS: 36415; 71260; 73110; 73130; 80053; 81025; 83690; 85025; 85610; 85730; 99284; Q9967